=== PATIENT | male | born 1970 | race Caucasian/White ===

== ENCOUNTER 2016-09-14 18:07 | Emergency (ER) | payer OTHER ==
[~2016-09-14 18:07] MED LIST: BACITRACIN30 GM TOP; BACTRIM DS TABL1 TA1 PO; DEPAKOTE PO; KEFLEX PO; KEFLEX500 MG PO; LIBRIUM25 MG PO; NO MEDICATIONS; THORAZINE100 MG PO; VOLTAREN75 MG PO
[2016-09-14 18:13] LABS: BASOPHIL# 0.1 X10e3 (0-0.3); BASOPHIL% 1.3 % (0-2.5); EOSINOPHIL% 0.7 % (0.0-7.0); HEMATOCRIT 41.1 % (38.0-50.0); LYMPHOCYTE# 1.1 X10e3 (1.0-3.5); LYMPHOCYTE% 20.6 % (17.0-45.0); MEAN CELL VOLUME 90.8 FL (83-96); MEAN CORPUSCULAR HEMOGLOBIN 30.8 PG (28-34); MEAN PLATELET VOLUME 11.8 FL (6.5-11.5); MONOCYTE# 0.4 X10e3 (0-1.0); MONOCYTE% 8.1 % (3.0-12.0); NEUTROPHIL# 3.7 X10e3 (1.5-7.1); NEUTROPHIL% 69.3 % (40-75); PLATELET COUNT 116 X10e3 (140-420); RED BLOOD COUNT 4.53 X10e (3.90-5.60); RED CELL DISTRIBUTION WIDTH 13.3 % (11.0-15.5); WHITE BLOOD COUNT 5.3 X10e3 (4.0-10.5)
[2016-09-14 18:24] LABS: DIFF IND NO
[2016-09-14 18:37] LABS: ALBUMIN SERUM 4.8 g/dL (3.5-5.0); ALKALINE PHOSPHATASE 75 U/L (32-92); ALT (SGPT) 11 U/L (10-40); AST (SGOT) 18 U/L (10-42); BILIRUBIN, DIRECT 0.1 mg/dL (0.0-0.2); BILIRUBIN,INDIRECT 0.3 mg/dL (0.0-0.9); BILIRUBIN,TOTAL 0.4 mg/dL (0.2-2.0); BLOOD UREA NITROGEN 10 mg/dL (9-23); BUN/CREATININE RATIO 9.09; CALCIUM SERUM 9.3 mg/dL (8.4-10.2); CARBON DIOXIDE 28 mmol/L (22-31); CHLORIDE 100 mmol/L (100-111); CREATININE SERUM 1.1 mg/dL (0.6-1.4); GLOM FILT RATE Estimated 81.2 mL/min (>60); GLUCOSE FASTING 105 mg/dL (70-110); POTASSIUM 3.5 mmol/L (3.5-5.1); PROTEIN TOTAL SERUM 8.1 g/dL (6.0-8.3); SODIUM 136 mmol/L (135-145)
[2016-09-14 18:40] LABS: ALCOHOL BLOOD <5 mg/dL (0)
== END 2016-09-14 19:15 ==
LOC: SED 18:07
PROVIDERS: Emergency Medicine
DX: F23 Brief psychotic disorder (principal); F17.210 Nicotine dependence, cigarettes, uncomplicated; Z88.0 Allergy status to penicillin; Z88.8 Allergy status to other drugs, medicaments and biological substances
CPT/HCPCS: 80048; 80076; 85025; 96372; 99285; G0480; J3486

== ENCOUNTER 2016-09-14 19:50 | Inpatient (IN) | payer OTHER ==
--- NOTE | ~2016-09-14 | HP ---
Unit #: [id number] #: [id number] Patient: NBA RIVAS [id number] [facility] [address] [place] [address] [id number] I MR#: [id number] NAME: NBA RIVAS. ROOM: P115 Age: 46 Sex: M Admission Date: 09/14/2016 : 1970 Attending Physician: Rico White M.D. Admitting Physician: Rico White M.D. Primary Care Physician: Primary Care Physician No HISTORY AND PHYSICAL Nba is a 46 year old who was admitted and discharged within the first 24 hours. He was not seen for an H and P. Dictated by... Marycruz Holt P.A.-C. for Rola Rodriguez/rocky TD: 09/15/2016 16:06 JOB #: [id number] HISTORY AND PHYSICAL Page 1 of 1 X Marycruz Holt X HISTORY AND PHYSICAL
== END 2016-09-15 13:10 | disposition home or self-care (01) | DRG 881 ==
LOC: P1S 19:50
DX: F32.9 Major depressive disorder, single episode, unspecified (principal); F60.2 Antisocial personality disorder; Z56.0 Unemployment, unspecified; F17.210 Nicotine dependence, cigarettes, uncomplicated; F19.10 Other psychoactive substance abuse, uncomplicated

== ENCOUNTER 2016-09-15 16:33 | Emergency (ER) | payer OTHER ==
--- NOTE | ~2016-09-15 | CT71 ---
[facility] A Service of [facility] RADIOLOGY TEXT RESULTS PATIENT: NBA RIVAS LOCATION: [facility] : 74 UNIT #: [id number] AGE: [address]: Samantha Weber MD SEX: M ORDER DR: [id number] [facility] [address] [facility]. [place], [place] [address] [id number] E MR#: [id number] Acc #: [id number] NAME: NBA RIVAS. : 1970 SEX: M STUDY DATE/TIME: 09/15/2016 17:19 UNIT: FLAVIA ROOM: STUDY DESCRIPTION: CT Head Wo Contrast Attending Physician: Samantha Weber M.D. Ordering Physician: Jimmy Ho M.D. Primary Care Physician: No Primary Care Physician MEDICAL IMAGING REPORT This report is preliminary unless electronic signature is present EXAM Head CT without contrast 09/15/2016 HISTORY Diffuse headache, pain across forehead and hematoma status post fall today, hit head with abrasion across forehead. TECHNIQUE This CT exam was performed with one or more of the following radiation dose reduction techniques: automatic control, adjustment of mA and/or kV according to patient size, and iterative reconstruction. FINDINGS Axial noncontrast images were obtained from the skull base to the vertex. Ventricular size and configuration are normal. There is no evidence of acute infarct or hemorrhage. There are no extra-axial fluid collections. No mass lesion or mass effect is seen. There are no skull fractures. IMPRESSION Normal noncontrast head CT. Dictated by... Jared Strickland M.D. THIS IS AN ELECTRONICALLY VERIFIED REPORT Jared Strickland M.D. at 09/16/2016 3:05 PM NASRIN/bianca TD: 09/16/2016 01:46 JOB #: [id number] MEDICAL IMAGING REPORT [facility] A Service of [facility] RADIOLOGY TEXT RESULTS PATIENT: NBA RIVAS LOCATION: [facility] : 74 UNIT #: [id number] AGE: [address]: Samantha Weber MD SEX: M ORDER DR: Page 1 of 1 COPY
--- NOTE | ~2016-09-15 | CR58 ---
[facility] A Service of [facility] RADIOLOGY TEXT RESULTS PATIENT: NBA RIVAS LOCATION: [facility] : 72 UNIT #: [id number] AGE: [address]: Samantha Weber MD SEX: M ORDER DR: [id number] [facility] [address] [facility]. [place], [place] [address] [id number] E MR#: [id number] Acc #: [id number] NAME: NBA RIVAS. : 1970 SEX: M STUDY DATE/TIME: 09/15/2016 16:51 UNIT: [facility] ROOM: STUDY DESCRIPTION: CR Cervical Spine 2 or 3 Views Attending Physician: Samantha Weber M.D. Ordering Physician: Ed Jr Ho M.D. Primary Care Physician: No Primary Care Physician MEDICAL IMAGING REPORT This report is preliminary unless electronic signature is present EXAM Cervical spine 7 views 09/15/2016 HISTORY Neck pain status post fall today possible overdose. FINDINGS AP and lateral projections of the cervical spine show satisfactory preservation of the cervical lordosis. The cervical soft tissues are normal. All anterior and posterior elements in the cervical area are anatomically normal without identifiable fracture, dislocation, malignant lytic or sclerotic change, or arthritis. There is no congenital defect apparent. IMPRESSION Normal cervical spine. x Dictated by... Jared Strickland M.D. THIS IS AN ELECTRONICALLY VERIFIED REPORT Jared Strickland M.D. at 09/16/2016 3:05 PM NASRIN/bianca TD: 09/16/2016 00:42 JOB #: [id number] MEDICAL IMAGING REPORT Page 1 of 1 COPY
[2016-09-15 17:07] LABS: BASOPHIL# 0.1 X10e3 (0-0.3); BASOPHIL% 1.1 % (0-2.5); EOSINOPHIL% 0.7 % (0.0-7.0); HEMATOCRIT 41.7 % (38.0-50.0); LYMPHOCYTE# 1.3 X10e3 (1.0-3.5); LYMPHOCYTE% 23.2 % (17.0-45.0); MEAN CORPUSCULAR HEMOGLOBIN 30.4 PG (28-34); MEAN CORPUSCULAR HGB CONC 33.5 g/dL (30-36); MEAN PLATELET VOLUME 12.5 FL (6.5-11.5); MONOCYTE# 0.5 X10e3 (0-1.0); MONOCYTE% 8.8 % (3.0-12.0); NEUTROPHIL# 3.6 X10e3 (1.5-7.1); NEUTROPHIL% 66.2 % (40-75); PLATELET COUNT 110 X10e3 (140-420); RED BLOOD COUNT 4.59 X10e (3.90-5.60); RED CELL DISTRIBUTION WIDTH 13.6 % (11.0-15.5); WHITE BLOOD COUNT 5.4 X10e3 (4.0-10.5)
[2016-09-15 17:08] LABS: DIFF IND NO
[2016-09-15 17:30] LABS: ALBUMIN SERUM 4.5 g/dL (3.5-5.0); ALKALINE PHOSPHATASE 66 U/L (32-92); ALT (SGPT) 12 U/L (10-40); AST (SGOT) 16 U/L (10-42); BILIRUBIN, DIRECT 0.1 mg/dL (0.0-0.2); BILIRUBIN,INDIRECT 0.4 mg/dL (0.0-0.9); BILIRUBIN,TOTAL 0.5 mg/dL (0.2-2.0); BLOOD UREA NITROGEN 13 mg/dL (9-23); BUN/CREATININE RATIO 14.44; CALCIUM SERUM 9.5 mg/dL (8.4-10.2); CARBON DIOXIDE 25 mmol/L (22-31); CHLORIDE 105 mmol/L (100-111); CREATININE SERUM 0.9 mg/dL (0.6-1.4); GLOM FILT RATE Estimated 103.5 mL/min (>60); GLUCOSE FASTING 68 mg/dL (70-110); POTASSIUM 3.8 mmol/L (3.5-5.1); PROTEIN TOTAL SERUM 7.4 g/dL (6.0-8.3); SALICYLATE <4.0 mg/dL; SODIUM 138 mmol/L (135-145)
[2016-09-15 17:32] LABS: ACETAMINOPHEN <10 ug/mL; ALCOHOL BLOOD <5 mg/dL (0)
[2016-09-15 18:24] LABS: URINE SOURCE CLEAN CATCH
[2016-09-15 18:56] LABS: URINE APPEARANCE TURBID; URINE BILIRUBIN NEG (NEG); URINE BLOOD NEG (NEG); URINE COLOR YELLOW; URINE GLUCOSE NEG (NEG); URINE KETONE TRACE (NEG); URINE LEUKOCYTE ESTERASE NEG (NEG); URINE NITRATE NEG (NEG); URINE PH 6.5 (5-8); URINE PROTEIN NEG (NEG); URINE SPECIFIC GRAVITY 1.023 (1.003-1.035)
[2016-09-15 19:09] LABS: CULTURE INDICATED? NO
[2016-09-15 19:19] LABS: AMPHETAMINE POS (NEG); BARBITURATES NEG (NEG); BENZODIAZEPINES NEG (NEG); COCAINE NEG (NEG); MARIJUANA POS (NEG); OPIATES NEG (NEG); TRICYCLIC ANTIDEPRESSANTS NEG (NEG); U METHADONE NEG (NEG)
== END 2016-09-15 23:53 ==
LOC: CED 16:33
PROVIDERS: Emergency Medicine
DX: R45.851 Suicidal ideations (principal); T65.92XA Toxic effect of unspecified substance, intentional self-harm, initial encounter; G40.909 Epilepsy, unspecified, not intractable, without status epilepticus; F17.210 Nicotine dependence, cigarettes, uncomplicated; F32.9 Major depressive disorder, single episode, unspecified; Z88.0 Allergy status to penicillin; Z23 Encounter for immunization; Z88.8 Allergy status to other drugs, medicaments and biological substances; Y92.9 Unspecified place or not applicable
CPT/HCPCS: 36415; 70450; 72040; 80048; 80076; 80307; 81003; 82947; 85025; 90471; 90715; 99285; G0480

== ENCOUNTER 2016-09-15 19:00 | Inpatient (IN) | payer OTHER ==
--- NOTE | ~2016-09-15 | DS ---
Unit #: [id number] #: [id number] Patient: NBA RIVAS [id number] [facility] [address] [place] [address] [id number] I MR#: [id number] NAME: NBA RIVAS. ROOM: 12 Age: 46 Sex: M Admission Date: 09/16/2016 : 1970 Discharge Date: 09/19/2016 Attending Physician: Rico White M.D. Primary Care Physician: Primary Care Physician No DISCHARGE SUMMARY REASON FOR ADMISSION Mr. Rivas is a 46-year-old man with previous admissions to our facility who came in reporting a recent discharge, but the onset of suicidal ideation and recent overdose. He was medically cleared at [facility] and [facility] LABORATORY DATA Please see hospital chart. HOSPITAL COURSE The patient was admitted and placed on suicide precautions. Remeron and Zyprexa were restarted. The patient had an unremarkable hospital stay with no attempts at self-harm, and no further endorsement of suicidal ideation. On the date of discharge, he once again contracted for safety and wanted to follow up with the outpatient program available through Our . DISCHARGE DIAGNOSES AXIS I: Major depression with psychotic features, history of polysubstance dependence. AXIS II: Antisocial traits. AXIS III: None. AXIS IV: AXIS V: DISCHARGE INSTRUCTIONS Follow up with the dual-diagnosis IOP at our facility. DISCHARGE MEDICATIONS Remeron 30 mg at bedtime for depression and Zyprexa 10 mg at bedtime for psychotic features. CONDITION AT DISCHARGE Improved. PROGNOSIS Fair to good. DIET AND ACTIVITY Per primary care doctor. Unit #: [id number] #: [id number] Patient: NBA RIVAS Dictated by... Rico White M.D. [facility]/modl TD: 11/23/2016 14:18 JOB #: [id number] DISCHARGE SUMMARY Page 1 of 1 X Rico White MD X DISCHARGE SUMMARY
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
--- NOTE | ~2016-09-15 | HP ---
Unit #: [id number] #: [id number] Patient: NBA RIVAS [id number] [place] [address] [id number] I MR#: [id number] NAME: NBA RIVAS. ROOM: 12 Age: 46 Sex: M Admission Date: 09/16/2016 : 1970 Attending Physician: Rico White M.D. Admitting Physician: Rico White M.D. Primary Care Physician: Primary Care Physician No HISTORY AND PHYSICAL HISTORY OF PRESENT ILLNESS The patient is a 46-year-old male admitted to [address] [place] [address] on 09/16/2016 for suicidal ideation. PAST MEDICAL HISTORY Patient denies. PAST SURGICAL HISTORY Patient denies. ALLERGIES Penicillin and Haldol. SOCIAL HISTORY He is unemployed. He lives with his mother. Smokes 1 pack of cigarettes daily and has a history of alcohol and methamphetamine abuse. FAMILY HISTORY Noncontributory. REVIEW OF SYSTEMS CONSTITUTIONAL: No fever or chills. HEENT: Denies any sore throat, ear pain or runny nose. CARDIOVASCULAR: Denies chest pain, irregular heart rhythm or palpitations. CHEST: Denies shortness of breath or cough. No hemoptysis. GASTROINTESTINAL: Denies nausea, vomiting, diarrhea or chronic constipation. ENDOCRINE: Denies history of increased thirst or urination. No recent significant weight loss or gain. GENITOURINARY: Denies dysuria, frequency, or hematuria. SKIN: Denies any rashes. HEMATOLOGIC: Denies history of increased bleeding or bruising. MUSCULOSKELETAL: Denies any hot, swollen joints. No generalized muscle pain. NEUROLOGIC: Denies problems with vision or speech. No frequent, severe headaches. No numbness, tingling or weakness in any extremities. Denies loss of bladder or bowel control. CURRENT MEDICATIONS The patient is not on any home medications. PHYSICAL EXAMINATION GENERAL: He is awake, alert, oriented, in no acute distress. Unit #: [id number] #: [id number] Patient: NBA RIVAS VITAL SIGNS: Temperature 98.3, heart rate 77, respirations 18, blood pressure 106/71. HEIGHT: 5 feet 9. WEIGHT: 133 pounds. SKIN: Warm and dry without rash or lesion. He has a laceration on his forehead. HEENT: Normocephalic. TMs not viewed. Oral and nasal passages clear. Conjunctivae clear. PERRLA. EOMs intact. NECK: Supple without lymphadenopathy or thyromegaly. HEART: Regular rate and rhythm without murmur. LUNGS: Clear. ABDOMEN: Soft, nontender. : Not done. EXTREMITIES: No evidence of cyanosis, clubbing or edema. Moves all without focal deficit. NEUROLOGICAL: Grossly within normal limits. Cranial Nerves: II: Visual sanchez are intact. III, IV AND : Extraocular movements are intact. Pupils are equal, round and reactive to light. V: Facial sensation is grossly normal. VII: Facial movements and expression are normal. VIII: Auditory acuity grossly intact. IX, X: Uvula is midline. Phonation is normal. XI: Patient shrugs shoulders and turns head normally. XII: Tongue protrudes in the midline. Sensory and Motor Function: Sensory and motor sensation is grossly normal. Motor: moves all extremities well. Coordination: Gait is normal. Deep Tendon Reflexes: Intact. IMPRESSION 1. Psychiatric admission. 2. Nicotine dependence. 3. History of polysubstance abuse. RECOMMENDATIONS PSYCHIATRIC: Per psychiatrist. MEDICAL: No contraindications to participate in facility's activities. MEDICAL PROGNOSIS Good. MEDICAL CONDITION Stable. Dictated by... Carrillo Mayorga/rocky TD: 09/16/2016 21:47 JOB #: [id number] Unit #: [id number] #: [id number] Patient: NBA RIVAS HISTORY AND PHYSICAL Page 1 of 1 X OMAR MAHAN APRN HISTORY AND PHYSICAL
== END 2016-09-19 13:30 | disposition home or self-care (01) | DRG 881 ==
LOC: P1S 09-16 00:56
DX: F32.9 Major depressive disorder, single episode, unspecified (principal); R45.851 Suicidal ideations; Z91.19 Patient's noncompliance with other medical treatment and regimen; F17.210 Nicotine dependence, cigarettes, uncomplicated; Z56.0 Unemployment, unspecified; Z88.0 Allergy status to penicillin; Z88.5 Allergy status to narcotic agent; Z59.0 Homelessness; F29 Unspecified psychosis not due to a substance or known physiological condition; F60.2 Antisocial personality disorder; Z88.8 Allergy status to other drugs, medicaments and biological substances; Z87.898 Personal history of other specified conditions

== ENCOUNTER 2016-10-03 21:28 | Emergency (ER) | payer OTHER | END 2016-10-03 22:32 | disposition home or self-care (01) | LOC: SED 21:28 | DX: S51.812D Laceration without foreign body of left forearm, subsequent encounter (principal); S51.811D Laceration without foreign body of right forearm, subsequent encounter; F15.182 Other stimulant abuse with stimulant-induced sleep disorder; F12.10 Cannabis abuse, uncomplicated; Z88.0 Allergy status to penicillin; W45.8XXD Other foreign body or object entering through skin, subsequent encounter; Y92.9 Unspecified place or not applicable | CPT/HCPCS: 87070; 87077; 87186; 87205; 96372; 99283; J1200 ==

== ENCOUNTER 2016-10-27 20:08 | Emergency (ER) | payer OTHER | END 2016-10-27 21:38 | disposition left against medical advice (07) | LOC: SED 20:08 | DX: Z53.21 Procedure and treatment not carried out due to patient leaving prior to being seen by health care provider (principal) ==

== ENCOUNTER 2016-12-07 11:12 | Observation (INO) | payer OTHER ==
[~2016-12-07] VITALS: Ht 175.3 cm; Wt 67.4 kg
--- NOTE | ~2016-12-07 | CO ---
Unit #: [id number] #: [id number] Patient: NBA RIVAS [id number] [facility] [address] [facility]. [place], [place] [address] [id number] I MR#: [id number] NAME: NBA RIVSA. ROOM: 328 Age: 46 Sex: M Admission Date: 12/07/2016 : 1970 Attending Physician: Alton Weinstein M.D. Primary Care Physician: Primary Care Physician No Consultation Date: 12/08/2016 CONSULTATION REPORT REASON FOR CONSULTATION Alcohol abuse, depression, anxiety, agitation, and paranoia. HISTORY OF PRESENT ILLNESS Mr. Nba Rivas is 46-year-old white male seen in room 328, bed 1, at [facility] on 12/08/2016. The patient dressed in hospital attire, sitting in bed, very agitated, anxious, almost shaking, nervous. The patient reported that he needs Valium. The patient reported that otherwise he is going to leave AMA. The patient reported that he was on Valium. The patient also admitted drinking heavily almost fifth of vodka daily. The patient denied any use of any other drugs. The patient reported history of previous admission for similar reason in the past, but denied any [facility]. The patient currently denied any suicidal or homicidal ideation, but somewhat guarded, paranoid, mood lability, irritability, anxiety, agitation. PAST PSYCHIATRIC HISTORY Unremarkable for any history of any previous treatment except history of mood disorder, history of alcohol abuse as mentioned above. MEDICAL HISTORY Unremarkable for history of alcohol abuse and history of alcohol withdrawal seizure. MEDICATION HISTORY None. ALLERGIES To penicillin. FAMILY/SOCIAL HISTORY The patient has a poor support system. Lives by himself. No history of any abuse. History of alcohol abuse as mentioned above. REVIEW OF SYSTEMS Complete review of systems unremarkable except as mentioned above. The patient's vital signs 97.7, 100, 23, blood pressure 130/104, saturation 95%. MENTAL STATUS EXAMINATION GENERAL APPEARANCE: The patient dressed in hospital attire, somewhat anxious, nervous. Attention span, concentration: Poor. Speech: Rapid in rate. Oriented in place and person. Mood and affect labile. Thought process: Circumstantial. Thought content: The patient somewhat guarded, Unit #: [id number] #: [id number] Patient: NBA RIVAS paranoid, but denied any thoughts of harming self or others. Recent and remote memory: Fair. Language: Intact. Fund of knowledge: Fair. Insight and judgment fair to slightly impaired. DIAGNOSES PSYCHIATRIC: Alcohol use disorder, severe, F10.20 Major depressive disorder, recurrent, severe, F33.2 SECONDARY: Deferred. MEDICAL: Please refer to H and P. STRESSORS: Psychosocial stressor. ASSESSMENT AND PLAN 1. Supportive psychotherapy, psychoeducation provided to the patient. 2. Educated about benefits and side effects of medication and course and prognosis of illness. 3. Agreed with a detox protocol, CIWA protocol. 4. Advised to put (1) __ Valium 10 mg 3 times a day and Haldol 5 mg 3 times a day, Cogentin 1 mg 3 times a day. 5. Plan to stabilize the patient and consider transferring the patient to [facility] if the patient is still having persistent symptoms. Please feel free to call if any question. . Also, after the patient is medically stable, also consider CD-IOP Program at [facility]. The patient was also given Crisis Line # [phone]. Dictated by... Jeet Vasquez M.D. PAYAM/bennie TD: 12/09/2016 14:39 JOB #: [id number] CONSULTATION REPORT Page 1 of 1 X Jeet Vasquez MD X CONSULTATION REPORT
--- NOTE | ~2016-12-07 | HP ---
Unit #: [id number] #: [id number] Patient: NBA RIVAS [id number] [address] [address] [id number] I MR#: [id number] NAME: NBA RIVAS. ROOM: 315 Age: 46 Sex: M Admission Date: 12/07/2016 : 1970 Attending Physician: Berna Jacobson M.D. HISTORY AND PHYSICAL CHIEF COMPLAINT Drug alcohol evaluation. HISTORY OF PRESENT ILLNESS The patient is a 46-year-old male with a long history of alcohol abuse brought to the emergency room complaining of alcohol evaluation. The patient is a poor historian, and the patient stated that patient has been drinking alcohol, up to a fifth of vodka on a daily basis, and the last drink was last night. Patient has received multiple doses of vitamin in the ER and is more sleepy and unable to provide further history. The patient has a history of recurrent admissions in the past for similar reasons and is being admitted for the above reasons. No further history is available. PAST MEDICAL HISTORY Alcohol abuse with history of alcohol withdrawal seizures. PAST SURGICAL HISTORY Craniotomy as a baby. Negative EEG for seizures in 2002. ALLERGIES Penicillin. HOME MEDICATIONS None. FAMILY HISTORY Diabetes mellitus. SOCIAL HISTORY The patient is homeless. He drinks over a fifth of vodka daily. He smokes a pack per day of tobacco. He denies any illicit drug abuse. REVIEW OF SYSTEMS Unable to obtain as the patient is more sleepy and unable to provide further history. PHYSICAL EXAMINATION GENERAL: Patient is lying in bed not in acute distress. Patient has poor hygiene and appears cachectic. VITAL SIGNS: Temperature 97.7, pulse 96, respiratory rate 23, blood pressure 130/103, and saturating 95% on room air. HEENT: Head atraumatic, normocephalic. Extraocular movements are intact. Dry mucous membranes. Unit #: [id number] #: [id number] Patient: NBA RIVAS NECK: Supple. No adenopathy. HEART: Regular rate and rhythm. ABDOMEN: Soft. Positive bowel sounds. EXTREMITIES: No cyanosis, no clubbing. NEUROLOGIC: Patient is more sleepy and unable to follow commands. DIAGNOSTIC STUDIES LABORATORY: WBC 5, hemoglobin 13.8, hematocrit 39.1, and platelets 174,000. Urinalysis shows trace protein. Sodium 136, potassium 3.4, chloride 104, bicarb 22, glucose 151, BUN 12, creatinine 0.9, calcium 8.9, AST 20, ALT 14, and alkaline phosphatase 72. Lipase 21. Magnesium 1.8. Alcohol 46. Urine drug is positive for benzodiazepines and marijuana. Glucose is 58. ASSESSMENT 1. Alcohol withdrawal. 2. Polysubstance abuse. PLAN Admit the patient to observation with telemetry. Continue with CIWA protocol and replace the potassium. Repeat the labs again in the morning. Further recommendations will follow as more lab results are available. Dictated by Rola Smith TD: 12/07/2016 17:16 JOB #: [id number] HISTORY AND PHYSICAL Page 1 of 1 X BERNA JACOBSON MD X HISTORY AND PHYSICAL
[2016-12-07 11:44] LABS: BASOPHIL% 0.8 % (0-2.5); EOSINOPHIL% 0.5 % (0.0-7.0); HEMATOCRIT 39.1 % (38.0-50.0); HEMOGLOBIN 13.8 gm/dL (13.0-16.0); LYMPHOCYTE# 1.1 X10e3 (1.0-3.5); LYMPHOCYTE% 20.9 % (17.0-45.0); MEAN CELL VOLUME 90.1 FL (83-96); MEAN CORPUSCULAR HEMOGLOBIN 31.8 PG (28-34); MEAN CORPUSCULAR HGB CONC 35.3 g/dL (30-36); MEAN PLATELET VOLUME 8.6 FL (6.5-11.5); MONOCYTE# 0.3 X10e3 (0-1.0); MONOCYTE% 6.4 % (3.0-12.0); NEUTROPHIL# 3.6 X10e3 (1.5-7.1); NEUTROPHIL% 71.4 % (40-75); PLATELET COUNT 174 X10e3 (140-420); RED BLOOD COUNT 4.34 X10e (3.90-5.60); RED CELL DISTRIBUTION WIDTH 14.4 % (11.0-15.5)
[2016-12-07 11:49] LABS: DIFF IND NO
[2016-12-07 14:01] LABS: URINE SOURCE CLEAN CATCH
[2016-12-07 14:12] LABS: URINE APPEARANCE CLEAR; URINE BILIRUBIN NEG (NEG); URINE BLOOD NEG (NEG); URINE COLOR DK YELLOW; URINE GLUCOSE NEG (NEG); URINE KETONE NEG (NEG); URINE LEUKOCYTE ESTERASE NEG (NEG); URINE NITRATE NEG (NEG); URINE PROTEIN TRACE (NEG); URINE SPECIFIC GRAVITY 1.024 (1.003-1.035)
[2016-12-07 14:16] LABS: CULTURE INDICATED? NO
[2016-12-07 14:31] LABS: ALBUMIN SERUM 4.4 g/dL (3.5-5.0); BILIRUBIN, DIRECT 0.1 mg/dL (0.0-0.2); BILIRUBIN,INDIRECT 0.7 mg/dL (0.0-0.9); BILIRUBIN,TOTAL 0.8 mg/dL (0.2-2.0); BUN/CREATININE RATIO 13.33; CALCIUM SERUM 8.9 mg/dL (8.4-10.2); CREATININE SERUM 0.9 mg/dL (0.6-1.4); GLOM FILT RATE Estimated 103.5 mL/min (>60); MAGNESIUM 1.8 mg/dL (1.6-3.0); POTASSIUM 3.4 mmol/L (3.5-5.1); PROTEIN TOTAL SERUM 7.5 g/dL (6.0-8.3)
[2016-12-07 14:34] LABS: AMPHETAMINE NEG (NEG); BARBITURATES NEG (NEG); BENZODIAZEPINES POS (NEG); COCAINE NEG (NEG); MARIJUANA POS (NEG); OPIATES NEG (NEG); TRICYCLIC ANTIDEPRESSANTS NEG (NEG); U METHADONE NEG (NEG)
[2016-12-07] MEDS ORDERED: NO MEDICATIONS (15:34)
[2016-12-08 05:32] LABS: MEAN CELL VOLUME 91.4 FL (83-96); MEAN CORPUSCULAR HEMOGLOBIN 31.3 PG (28-34); MEAN CORPUSCULAR HGB CONC 34.3 g/dL (30-36); MEAN PLATELET VOLUME 9.7 FL (6.5-11.5); RED BLOOD COUNT 4.15 X10e (3.90-5.60); RED CELL DISTRIBUTION WIDTH 14.7 % (11.0-15.5); WHITE BLOOD COUNT 5.5 X10e3 (4.0-10.5)
[2016-12-08 06:15] LABS: BUN/CREATININE RATIO 17.14; CALCIUM SERUM 8.4 mg/dL (8.4-10.2); CREATININE SERUM 0.7 mg/dL (0.6-1.4); GLOM FILT RATE Estimated 114.8 mL/min (>60); POTASSIUM 3.9 mmol/L (3.5-5.1)
== END 2016-12-08 13:42 | disposition left against medical advice (07) | DRG 894 ==
LOC: CED 11:12 → CEDOF 15:54 → CED 16:17 → C3A PCU 17:09 → CEDOF 17:09 → C3A PCU 21:56
PROVIDERS: Emergency Medicine; Internal Medicine
DX: F10.239 Alcohol dependence with withdrawal, unspecified (principal); F19.10 Other psychoactive substance abuse, uncomplicated; F33.2 Major depressive disorder, recurrent severe without psychotic features; Z88.0 Allergy status to penicillin
CPT/HCPCS: 80048; 80076; 80307; 81003; 82550; 82947; 83690; 83735; 85025; 85027; 94760; 96361; 96372; 96374; 96375; 96376; 99285; G0378; G0480; J1650; J2060; J3411; J7042

== ENCOUNTER 2016-12-29 13:49 | Emergency (ER) | payer OTHER ==
[2016-12-29 18:29] LABS: URINE SOURCE CLEAN CATCH
[2016-12-29 18:32] LABS: URINE APPEARANCE CLEAR; URINE BILIRUBIN NEG (NEG); URINE BLOOD TRACE-INTACT (NEG); URINE COLOR YELLOW; URINE GLUCOSE NEG (NORM); URINE KETONE NEG (NEG); URINE LEUKOCYTE ESTERASE NEG (NEG); URINE NITRATE NEG (NEG); URINE PROTEIN NEG (NEG); URINE SPECIFIC GRAVITY <=1.005 (1.003-1.035); URINE UROBILINOGEN 0.2 MG/DL (NORM)
[2016-12-29 18:33] LABS: MICRO INDICATED? YES
[2016-12-29 18:37] LABS: CULTURE INDICATED? NO; URINE BACTERIA NEG (NEG); URINE SQUAMOUS EPITHELIAL CELL OCCAS /[HPF]; URINE WBC 0-2 /[HPF] (0-5)
[2016-12-29 18:42] LABS: AMPHETAMINE POS (NEG); BARBITURATES NEG (NEG); BENZODIAZEPINES NEG (NEG); COCAINE NEG (NEG); MARIJUANA POS (NEG); OPIATES NEG (NEG); TRICYCLIC ANTIDEPRESSANTS NEG (NEG); U METHADONE NEG (NEG)
== END 2016-12-29 19:00 | disposition home or self-care (01) ==
LOC: SED 13:49
PROVIDERS: Emergency Medicine
DX: R44.3 Hallucinations, unspecified (principal); F43.9 Reaction to severe stress, unspecified; F19.10 Other psychoactive substance abuse, uncomplicated; F17.200 Nicotine dependence, unspecified, uncomplicated; Z88.0 Allergy status to penicillin; Z88.8 Allergy status to other drugs, medicaments and biological substances
CPT/HCPCS: 80307; 81003; 99284

== ENCOUNTER 2017-01-04 19:17 | Emergency (ER) | payer OTHER ==
[2017-01-04 20:06] LABS: BASOPHIL% 0.9 % (0-2.5); EOSINOPHIL# 0.1 X10e3 (0-0.7); EOSINOPHIL% 2.5 % (0.0-7.0); HEMATOCRIT 28.1 % (38.0-50.0); HEMOGLOBIN 9.5 gm/dL (13.0-16.0); LYMPHOCYTE# 1.4 X10e3 (1.0-3.5); LYMPHOCYTE% 25.9 % (17.0-45.0); MEAN CELL VOLUME 83.5 FL (83-96); MEAN CORPUSCULAR HEMOGLOBIN 28.1 PG (28-34); MEAN CORPUSCULAR HGB CONC 33.7 g/dL (30-36); MEAN PLATELET VOLUME 8.9 FL (6.5-11.5); MONOCYTE# 0.5 X10e3 (0-1.0); NEUTROPHIL# 3.2 X10e3 (1.5-7.1); NEUTROPHIL% 61.7 % (40-75); PLATELET COUNT 191 X10e3 (140-420); RED BLOOD COUNT 3.36 X10e (3.90-5.60); RED CELL DISTRIBUTION WIDTH 16.5 % (11.0-15.5); WHITE BLOOD COUNT 5.3 X10e3 (4.0-10.5)
[2017-01-04 20:09] LABS: DIFF IND NO
[2017-01-04 20:23] LABS: BLOOD UREA NITROGEN 11 mg/dL (9-23); CARBON DIOXIDE 27 mmol/L (22-31); CHLORIDE 103 mmol/L (100-111); GLOM FILT RATE Estimated 91.1 mL/min (>60); GLUCOSE FASTING 91 mg/dL (70-110); POTASSIUM 3.3 mmol/L (3.5-5.1); SODIUM 138 mmol/L (135-145)
[2017-01-04 20:26] LABS: ALCOHOL BLOOD <5 mg/dL (0)
[2017-01-04 20:43] LABS: URINE APPEARANCE CLEAR; URINE BILIRUBIN NEG (NEG); URINE COLOR YELLOW; URINE GLUCOSE NEG (NORM); URINE KETONE NEG (NEG); URINE LEUKOCYTE ESTERASE NEG (NEG); URINE NITRATE NEG (NEG); URINE PROTEIN NEG (NEG); URINE SOURCE CLEAN CATCH; URINE SPECIFIC GRAVITY 1.015 (1.003-1.035); URINE UROBILINOGEN 0.2 MG/DL (NORM)
[2017-01-04 20:46] LABS: MICRO INDICATED? NO; URINE BLOOD NEG (NEG)
[2017-01-04 20:55] LABS: AMPHETAMINE POS (NEG); BARBITURATES NEG (NEG); BENZODIAZEPINES NEG (NEG); COCAINE NEG (NEG); MARIJUANA POS (NEG); OPIATES NEG (NEG); TRICYCLIC ANTIDEPRESSANTS NEG (NEG); U METHADONE NEG (NEG)
== END 2017-01-05 08:40 | disposition home or self-care (01) ==
LOC: SED 19:17
PROVIDERS: Emergency Medicine
DX: F19.10 Other psychoactive substance abuse, uncomplicated (principal); D64.9 Anemia, unspecified; E87.6 Hypokalemia
CPT/HCPCS: 36415; 80048; 80307; 81003; 85025; 96372; 99285; G0480; J3486

== ENCOUNTER 2017-01-11 19:00 | Inpatient (IN) | payer OTHER ==
[~2017-01-11] VITALS: Ht 175.3 cm; Wt 59.4 kg
--- NOTE | ~2017-01-11 | PN ---
Unit #: [id number] #: [id number] Patient: NBA RIVAS [id number] [facility] [address] [place] [address] [id number] I MR#: [id number] NAME: NBA RIVAS. ROOM: P121 Age: 46 Sex: M Admission Date: 01/11/2017 : 1970 Attending Physician: Rico White M.D. Admitting Physician: Rico White M.D. Primary Care Physician: Primary Care Physician Susana VALLE PROGRESS NOTES DATE 01/15/2017 DISCUSSION Nba continues to be agitated and anxious despite compliance with Zyprexa. His psychosis is gradually improving, but he is extremely irritable and has trouble tolerating the milieu. He is alert and oriented to person, location, and partially to time and partially to situation. His memory and concentration remain only fair. ASSESSMENT Schizophrenia paranoid type. PLAN I will restart clonazepam 0.5 mg b.i.d. for anxiety and continue current treatment plan. Dictated by... Rola Hooper/bennie TD: 01/20/2017 11:40 JOB #: [id number] PEAN[facility]IA PROGRESS NOTES Page 1 of 1 X Rico White MD PROGRESS NOTE
--- NOTE | ~2017-01-11 | PN ---
Unit #: [id number] #: [id number] Patient: NBA CABRAL [id number] [facility] [address] [place] [address] [id number] I MR#: [id number] NAME: NBA CABRAL. ROOM: P121 Age: 46 Sex: M Admission Date: 01/11/2017 : 1970 Attending Physician: Rico White M.D. Admitting Physician: Rico White M.D. Primary Care Physician: Primary Care Physician Susana VIZCAINO NOTES DATE 01/13/2017 DISCUSSION Patient seen and assessed on 01/13/2017. Upon today's assessment, the patient was found ambulating the hallway. When asked how he was feeling, he reports "I'm not good." His mood appeared very irritable and his affect was congruent to mood. He at this time denies suicidal/homicidal ideation and verbalized no plan or intent. He denied auditory, visual hallucinations and no overt symptoms of psychosis was noted. We will continue to monitor Mr. Cabral for any return in suicidal, homicidal ideation or any type of aggressive behaviors while hospitalized as well as q. 15 minute checks for safety. Dictated by... BG Clark/rocky TD: 01/16/2017 22:43 JOB #: [id number] LEONARD VIZCAINO NOTES Page 1 of 1 X MALOU OTTO PROGRESS NOTE
--- NOTE | ~2017-01-11 | HP ---
Unit #: [id number] #: [id number] Patient: NBA RIVAS [id number] [place] [address] [id number] MR#: [id number] NAME: NBA RIVAS. ROOM: P121 Age: 46 Sex: M Admission Date: 01/11/2017 : 1970 Attending Physician: Rico White M.D. Admitting Physician: Rico White M.D. Primary Care Physician: Primary Care Physician No HISTORY AND PHYSICAL HISTORY OF PRESENT ILLNESS Nba is a 46 year old admitted to [address] [place] [address] with psychosis. He was found at a local [employer], cutting his arms with a razor. His arms were sutured prior to his admission at [facility]. PAST MEDICAL HISTORY 1. Long history of illicit substance abuse. 2. History of alcohol abuse. 3. History of withdrawal seizures. PAST SURGICAL HISTORY Craniotomy as a baby. ALLERGIES Penicillin. SOCIAL HISTORY Smokes one pack per day. Drinks at least a fifth of liquor on a daily basis and has a history of illicit drug use. FAMILY HISTORY Medically not known. REVIEW OF SYSTEMS He does not answer any questions appropriately. CURRENT MEDICATIONS 1. Zyprexa 20 mg q.h.s. 2. Milk of Magnesia p.r.n. 3. Maalox p.r.n. 4. Tylenol p.r.n. 5. Remeron 30 mg q.h.s. PHYSICAL EXAMINATION GENERAL: Alert, very unkempt, dirty, thin, very psychotic, but no apparent physical distress. VITAL SIGNS: Blood pressure 100/52, heart rate 80, respirations 16, and temperature 98.6. WEIGHT: 131. HEIGHT: 5 feet 9 inches. SKIN: Warm and dry without rash. He has multiple long linear lacerations along both arms. Stitches are in place. There is adequate to good skin approximation without redness, swelling, heat, or pus. Unit #: [id number] #: [id number] Patient: NBA RIVAS HEENT: Normocephalic. TMs not viewed. Oral and nasal passages clear. Conjunctivae clear. PERRLA. EOMs intact. NECK: Supple without lymphadenopathy or thyromegaly. HEART: Regular rate and rhythm without murmur. LUNGS: Clear. ABDOMEN: Soft, nontender. : Not done. EXTREMITIES: No evidence of cyanosis, clubbing or edema. Moves all without focal deficit. NEUROLOGICAL: Unable to complete extended exam. He does move all extremities without focal deficit. Hand can runner is equal, gait is normal. IMPRESSION 1. Psychiatric admission. 2. History of polysubstance abuse with history of withdrawal seizures. 3. Self-inflicted lacerations to both arms sustained prior to this admission. RECOMMENDATIONS PSYCHIATRIC: Per psychiatrist. MEDICAL: 1. I see no contraindication to participate in this facility's activities. 2. Watch for signs of detox. 3. He is currently on no detox protocol. 4. Keep the arms clean with soap and water. Suture removal in 7 to 10 days. MEDICAL PROGNOSIS Good. MEDICAL CONDITION Stable. Dictated by... Marycruz Holt P.A.-C. for Rola Rodriguez/bennie TD: 01/13/2017 13:46 JOB #: [id number] HISTORY AND PHYSICAL Page 1 of 1 X Marycruz Holt HISTORY AND PHYSICAL
--- NOTE | ~2017-01-11 | PA ---
Unit #: [id number] #: [id number] Patient: NBA CABRAL [id number] [facility] [address] [place] [address] [id number] MR#: [id number] NAME: NBA CABRAL. ROOM: P121 Age: 46 Sex: M Admission Date: 01/11/2017 : 1970 Date of Assessment: 01/12/2017 Attending Physician: Rico White M.D. Admitting Physician: Rico White M.D. Primary Care Physician: Primary Care Physician No PSYCHIATRIC ASSESSMENT INFORMANT(S) Patient, reliable. [facility]. CHIEF COMPLAINT Psychosis. HISTORY OF PRESENT ILLNESS Mr. Cabral is a 46-year-old man, with a long history of schizophrenia, who came in, in acutely psychotic state believing that aliens were taking over his planet and had replaced his family members. He claimed, quite adamantly, that he could prove these paranoid accusations if he was given access to "a plant." He had vague suicidal ideation, and had made cuts on his arm prior to admission. He was admitted for further stabilization. PAST PSYCHIATRIC HISTORY Last admission to this facility, was in September 2016 with the diagnosis of schizophrenia. He has also been at [facility] in the past. FAMILY PSYCHIATRIC HISTORY None reported. SOCIAL HISTORY The patient denied a history of childhood abuse or neglect. He is homeless and has stayed with his mother erratically in the past. He is currently unemployed and on disability. PAST MEDICAL HISTORY No chronic medical problems. MEDICATIONS None currently. ALLERGIES Penicillin and haloperidol. SUBSTANCE ABUSE HISTORY There is a history of chemical dependence but on recent use. MENTAL STATUS EXAM Mr. Cabral presented as a mildly disheveled thin man, appeared older than his stated age. Unit #: [id number] #: [id number] Patient: NBA CABRAL His speech was loud, pressured, and difficult to interrupt. Musculoskeletal examination demonstrated psychomotor agitation. His mood was very irritable and labile with a congruent affect. He was alert and oriented to person and location, time, and partially situation. His memory and concentration were impaired and his thought processes were extremely paranoid with persecutory delusions. He reported some suicidal ideation but contracted for safety in the hospital. Insight and judgment were fair. Fund of knowledge and abstraction were impaired. ASSETS The patient has a supportive family and knows local resources. LIABILITIES Liabilities include recent decompensation. ADMITTING DIAGNOSES [place] I: Schizophrenia, paranoid type vs major depression with psychotic features. [place] II: Antisocial traits. [place] III: Recent self-inflicted lacerations. [place] IV: [place] V: PSYCHIATRIC PLAN Mr. Cabral was admitted and placed on suicide precautions. Cco7fvqk 10 mg at bedtime was restarted with an increase in dose to 20 mg due to his acute psychosis. Remeron was also continued for depression. He will enroll in psychotherapy groups and activities and a physical examination and laboratory studies will be ordered and reviewed. TREATMENT GOALS Resolution of psychosis, resolution of SI, improvement in insight, and improvement in coping skills. DISCHARGE PLANNING Followup with Vladislav Eason. ESTIMATED LENGTH OF STAY Five days. Dictated by... Rico White M.D. KWABENA/payal TD: 01/19/2017 11:45 JOB #: [id number] Unit #: [id number] #: [id number] Patient: NBA CABRAL PSYCHIATRIC ASSESSMENT Page 1 of 1 X Rico White MD PSYCHIATRIC ASSESSMENT
--- NOTE | ~2017-01-11 | PN ---
Unit #: [id number] #: [id number] Patient: NBA RIVAS [id number] [facility] [address] [place] [address] [id number] MR#: [id number] NAME: NBA RIVAS. ROOM: P121 Age: 46 Sex: M Admission Date: 01/11/2017 : 1970 Attending Physician: Rico White M.D. Admitting Physician: Rico White M.D. Primary Care Physician: Primary Care Physician Susana VALLE PROGRESS NOTES DATE 01/14/2017 DISCUSSION Mr. Rivas is compliant with medications. He continues to express irritability and anxiety and is quite irritable upon approach. He also continues to be delusional about invasions of aliens and replacement of other persons. ASSESSMENT Schizophrenia, paranoid type. PLAN Continue current treatment plan and consider re-adding clonazepam. Dictated by... Rico White M.D. [facility]/bzg TD: 01/20/2017 11:17 JOB #: [id number] [facility] PROGRESS NOTES Page 1 of 1 X Rico White MD X PROGRESS NOTE
--- NOTE | ~2017-01-11 | DS ---
Unit #: [id number] #: [id number] Patient: NBA RIVAS [id number] [place] [address] [id number] I MR#: [id number] NAME: NBA RIVAS. ROOM: P121 Age: 46 Sex: M Admission Date: 01/11/2017 : 1970 Discharge Date: 01/17/2017 Attending Physician: Rico White M.D. Primary Care Physician: Primary Care Physician No DISCHARGE SUMMARY REASON FOR ADMISSION Mr. Rivas is a 46-year-old man, with previous admissions with various diagnoses of substance-induced psychosis, schizophrenia bipolar disorder and depression. He came in acutely agitated state having made cuts on his arms and claiming that aliens had replaced his family members. He was admitted for stabilization. DIAGNOSTIC STUDIES Laboratory data, please see hospital chart. HOSPITAL COURSE Nba was placed on suicide precautions and Remeron 30 mg at bedtime for depression. His Zyprexa was increased from 10 mg to 20 mg at bedtime for psychosis and due to severe agitation, clonazepam 0.5 mg twice daily was added. The patient was pushing for "the maximum dose" of clonazepam, but I reminded him that under state law I was only able to give him a three-day prescription for this medication. His outpatient doctor would have to be responsible for increasing it. The patient showed some improvement with no further tendency towards self harm, although his insight remained somewhat superficial. On date of discharge, he contracted for safety in the outpatient setting. DISCHARGE DIAGNOSES [place] I Schizophrenia, paranoid type, vs major depressive disorder with psychosis. [place] II Antisocial traits. [place] III None acute. [place] IV [place] V INSTRUCTIONS TO PATIENT Follow up with Vladislav Eason. DISCHARGE MEDICATIONS 1. Zyprexa 20 mg at bedtime for psychosis 2. Remeron 30 mg at bedtime for depression 3. Clonazepam 0.5 mg twice daily for anxiety, three day prescription given CONDITION AT DISCHARGE Fair. Unit #: [id number] #: [id number] Patient: NBA RIVAS PROGNOSIS [place]. DIET AND ACTIVITY Per primary care doctor. Dictated by... Rico White M.D. KWABENA/payal TD: 01/22/2017 07:32 JOB #: [id number] DISCHARGE SUMMARY Page 1 of 1 X Rico White MD DISCHARGE SUMMARY
--- NOTE | ~2017-01-11 | PN ---
Unit #: [id number] #: [id number] Patient: NBA RIVAS [id number] [facility] [address] [place] [address] [id number] I MR#: [id number] NAME: NBA RIVAS. ROOM: P121 Age: 46 Sex: M Admission Date: 01/11/2017 : 1970 Attending Physician: Rico White M.D. Admitting Physician: Rico White M.D. Primary Care Physician: Primary Care Physician Susana VALLE PROGRESS NOTES DATE 01/16/2017 DISCUSSION Mr. Rivas continues to show improvement today. He is asking for Ensure but this is apparently not available from dietary at this time. He is less agitated and less paranoid and less focused on his previous psychotic symptoms. ASSESSMENT Schizophrenia, paranoid type. PLAN Continue current medication, anticipating discharge in the near future. Dictated by... Rico White M.D. [facility]/billyh TD: 01/20/2017 17:21 JOB #: [id number] [facility] PROGRESS NOTES Page 1 of 1 X Rico White MD PROGRESS NOTE
== END 2017-01-17 12:15 | disposition home or self-care (01) | DRG 885 ==
LOC: P1S 23:08
DX: F20.0 Paranoid schizophrenia (principal); R45.851 Suicidal ideations; F60.2 Antisocial personality disorder; X83.8XXA Intentional self-harm by other specified means, initial encounter
CPT/HCPCS: 36415; 80048; 80076; 80307; 81003; 82550; 85025; 96372; 99285; G0480; J1885; J3486